=== PATIENT | female | born 2005 | race Caucasian/White ===

== ENCOUNTER 2023-01-29 17:30 | Emergency (ER) | payer OTHER, BC ==
[~2023-01-29] VITALS: Ht 165.1 cm; Wt 95.2 kg
[2023-01-29] MEDS ORDERED: PERCOCET 5-3251 EACH PO (19:15)
[2023-01-29 19:45] VITALS: BP 139/92
== END 2023-01-29 19:45 | disposition home or self-care (01) ==
LOC: ED 17:30
DX: S32.059A Unspecified fracture of fifth lumbar vertebra, initial encounter for closed fracture (principal); V86.55XA Driver of 3- or 4- wheeled all-terrain vehicle (ATV) injured in nontraffic accident, initial encounter; Z20.822 Contact with and (suspected) exposure to COVID-19
CPT/HCPCS: 36415; 70450; 71260; 72125; 73552; 74177; 80053; 82553; 83605; 84702; 85025; 86850; 86900; 86901; 87502; 90715; C9803; G0480; J1170; J2405; J7121; Q9967; U0003